=== PATIENT | male | born 1950 | race Caucasian/White ===

== ENCOUNTER → 2019-09-02 | Outpatient (CLI) | payer MEDICARE ==
--- NOTE | 2019-09-02 17:07 | XR ---
EXAMINATION TYPE: XR chest 2V DATE OF EXAM: 09/02/2019 COMPARISON: 04/15/2013 HISTORY: Short of breath TECHNIQUE: FINDINGS: Heart and mediastinum are normal. There is 2 cm sharply marginated nodular density in the s uperior segment right lower lobe posteriorly. Diaphragm is normal. Bony thorax appears normal. IMPRESSION: There is nodule in the right lung that is new compared to old exam. Follow-up recommended .
--- NOTE | 2019-09-03 07:52 | XR ---
EXAMINATION TYPE: XR ribs LT DATE OF EXAM: 09/02/2019 COMPARISON: CXR from same day. HISTORY: Left anterior rib rain. TECHNIQUE: A frontal and oblique images of the left sided ribs are obtained. FINDINGS: No acute displaced left-sided rib fractures are seen. Overlying soft tissue is unremarkable . Some degenerative change left shoulder greatest at the acromioclavicular joint noted. IMPRESSION: As above.
== END | disposition home or self-care (01) ==
LOC: RADXRMAIN 16:23
PROVIDERS: ATTEND Family Medicine
DX: M19.012 Primary osteoarthritis, left shoulder (principal); R91.1 Solitary pulmonary nodule; R06.02 Shortness of breath; R07.9 Chest pain, unspecified
CPT/HCPCS: 36415; 71046; 80053; 81001; 82306; 82553; 83615; 84153; 84443; 84484; 85027; 85379

== ENCOUNTER → 2019-09-02 | Outpatient (CLI) | payer MEDICARE ==
[2019-09-02 16:32] LABS: HGB 14.4 gm/dL (13.0-17.5); MCH 29.6 pg (25.0-35.0); MCHC 33.5 g/dL (31.0-37.0); MCV 88.3 fL (80.0-100.0); Platelet Count 324 k/uL (150-450); Poikilocytosis Slight; RBC 4.87 m/uL (4.30-5.90); RDW 14.2 % (11.5-15.5); WBC 5.2 k/uL (3.8-10.6)
[2019-09-02 16:37] LABS: ALT 18 U/L (4-49); AST 22 U/L (17-59); African American GFR (CKD) >90 (>60 ml/min/1.73 sqM); Albumin 4.3 g/dL (3.5-5.0); Albumin/Globulin Ratio 1.5; Alkaline Phosphatase 105 U/L (38-126); Anion Gap 9 mmol/L; Blood Urea Nitrogen 36 mg/dL (9-20); Calcium 10.2 mg/dL (8.4-10.2); Carbon Dioxide 24 mmol/L (22-30); Chloride 107 mmol/L (98-107); Globulin 2.8 g/dL; Glucose 141 mg/dL (74-99); LDH 346 U/L (313-618); Non-African American GFR(CKD) >90 (>60 ml/min/1.73 sqM); Potassium 3.7 mmol/L (3.5-5.1); Sodium 140 mmol/L (137-145); Total Bilirubin 0.5 mg/dL (0.2-1.3); Total Protein 7.1 g/dL (6.3-8.2)
[2019-09-02 16:46] LABS: Appearance,Urine Clear (Clear); Bilirubin,Urine Negative (Negative); Blood,Urine Negative (Negative); Color,Urine Yellow; Glucose,Urine (UA) Negative (Negative); Ketones,Urine Negative (Negative); Leukocyte Esterase,Urine Negative (Negative); Mucus,Urine Many /hpf; Nitrite,Urine Negative (Negative); PH, Urine 5.5 (5.0-8.0); Protein,Urine 1+ (Negative); RBC,Urine 1 /hpf (0-5); WBC,Urine 1 /hpf (0-5)
[2019-09-02 16:58] LABS: Creatine Kinase MB 1.3 ng/mL (0.0-2.4); Troponin I <0.012 ng/mL (0.000-0.034)
== END | disposition home or self-care (01) ==
LOC: LABWHC1 15:13
PROVIDERS: ATTEND Family Medicine
DX: I10 Essential (primary) hypertension (principal); R07.9 Chest pain, unspecified; R06.02 Shortness of breath; Z85.46 Personal history of malignant neoplasm of prostate
CPT/HCPCS: 36415; 80053; 81001; 82306; 82553; 83615; 84153; 84443; 84484; 85027; 85379

== ENCOUNTER → 2019-09-03 | Outpatient (CLI) | payer MEDICARE ==
--- NOTE | 2019-09-03 10:51 | CT ---
EXAMINATION TYPE: CT angio chest DATE OF EXAM: 09/03/2019 COMPARISON: Chest x-ray from yesterday HISTORY: Shortness of breath, post op knee replacement, elevated d-dimer CT DLP: 565 mGycm. Automated Exposure Control for Dose Reduction was Utilized. CONTRAST: CTA scan of the thorax is performed with IV Contrast, patient injected with 100 mL of Isovue 370, pul monary embolism protocol. MIP Images are created on CT scanner and reviewed. FINDINGS: LUNGS: Confirmation of suspicious right upper lobe nodule measuring 2.1 x 1.4 cm axial image 46. Lung s are clear. No pleural effusion or pneumothorax seen bilaterally. MEDIASTINUM: There is satisfactory enhancement of the pulmonary artery and its branches, there is no CT evidence for pulmonary embolism. There are no greater than 1 cm hilar or mediastinal lymph nodes. No cardiomegaly is seen. Fairly severe three-vessel coronary artery calcification which is noted m yanetker for underlying coronary artery disease. There is significant pulsation artifact but poor flow i n the mid right coronary artery with some improved flow near the intraventricular septum inferiorly. Trace pericardial effusion anterior-inferior aspect axial image 104. OTHER: Visualized liver heterogeneously hypodense consistent with fatty infiltration. Small degree of bilateral subareolar gynecomastia. Exaggerated thoracic kyphosis with moderate to severe multilevel anterior and lateral spurring. IMPRESSION: 1. No CT evidence for acute pulmonary embolism. 2. No suspicious acute pulmonary process. 3. Fairly severe three-vessel coronary artery disease, correlation with additional cardiac risk facto rs advised. 4. Confirmation of suspicious 2.1 cm right upper lobe nodule in which neoplasm cannot be excluded fur ther investigation with PET CT or imaging guided sampling advised.
--- NOTE | 2019-09-03 11:58 | US ---
EXAMINATION TYPE: US venous doppler duplex LE DATE OF EXAM: 09/03/2019 11:48 AM COMPARISON: Prior right lower extremity venous ultrasound March 14, 2016. CLINICAL HISTORY: R79.1 Elevated D Dimer. Post op knee surgery SIDE PERFORMED: Bilateral TECHNIQUE: The lower extremity deep venous system is examined utilizing real time linear array sonog junior with graded compression, doppler sonography and color-flow sonography. VESSELS IMAGED: External Iliac Vein (EIV) Common Femoral Vein Deep Femoral Vein Greater Saphenous Vein * Femoral Vein Popliteal Vein Small Saphenous Vein * Proximal Calf Veins (* superficial vessels) Right Leg: Negative for DVT Left Leg: Negative for DVT Grayscale, color doppler, spectral doppler imaging performed of the deep veins of the bilateral lower extremities. There is normal flow, compressibility, vascular waveforms. IMPRESSION: No ultrasound evidence for acute DVT in either lower extremity on current study.
== END | disposition home or self-care (01) ==
LOC: RADCTMAIN 10:07
PROVIDERS: ATTEND Family Medicine
DX: I25.10 Atherosclerotic heart disease of native coronary artery without angina pectoris (principal); R06.02 Shortness of breath; R79.1 Abnormal coagulation profile; R91.1 Solitary pulmonary nodule
CPT/HCPCS: 93970; 71275; Q9967

== ENCOUNTER → 2019-09-13 | Outpatient (CLI) | payer MEDICARE ==
--- NOTE | 2019-09-15 13:56 | PE ---
Nuclear medicine PET/CT HISTORY: Lung carcinoma, initial Patient received 9.8 mCi F-18 FDG intravenously in delayed scanning was performed from the skull base to the mid thighs. Localization and attenuation correction CT scan was performed., Correlation CT est 09/03/2019 Neck and chest: There is no cervical or supraclavicular adenopathy. There is a right upper lobe lung mass is noted in prior CT, there is associated hypermetabolic uptake, SUV 8.5. No mediastinal, axilla ry, or hilar adenopathy. Coronary artery calcifications are dense. No pleural or pericardial effusion s. ABDOMEN: There is no adrenal mass or associated hypermetabolic uptake. No retroperitoneal adenopathy. No liver mass. Osseous structures show degenerative disc disease, facet arthropathy in the lumbar spine. No suspicio us hypermetabolic uptake. IMPRESSION: Findings suggest bronchogenic carcinoma right upper lobe.
== END | disposition home or self-care (01) ==
LOC: RADPETMAIN 14:50
PROVIDERS: ATTEND Family Medicine
DX: R91.8 Other nonspecific abnormal finding of lung field (principal)
CPT/HCPCS: 78815; A9552

== ENCOUNTER → 2019-09-19 | Outpatient (CLI) | payer MEDICARE ==
--- NOTE | 2019-09-19 19:29 | ECHOF ---
Referral Reason:R06.09 shortness of breath MEASUREMENTS -------- HEIGHT: 175.3 cm WEIGHT: 95.3 kg BP: IVSd: 1.1 cm (0.6 - 1.1) LVIDd: 3.3 cm (3.9 - 5.3) LVPWd: 1.1 cm (0.6 - 1.1) IVSs: 1.2 cm LVIDs: 1.9 cm LVPWs: 0.9 cm LAESV Index (A-L): 20.72 ml/m Ao Diam: 3.7 cm (2.0 - 3.7) AV Cusp: 2.5 cm (1.5 - 2.6) LA Diam: 2.8 cm (2.7 - 3.8) MV EXCURSION: 12.842 mm (> 18.000) MV EF SLOPE: 32 mm/s (70 - 150) EPSS: 0.6 cm MV E Ghulam: 0.51 m/s MV DecT: 294 ms MV A Ghulam: 0.74 m/s MV E/A Ratio: 0.69 RAP: 5.00 mmHg RVSP: 12.80 mmHg TAPSE: 24.99 mm FINDINGS -------- Sinus rhythm. This was a technically adequate study. The left ventricular size is normal. Left ventricular wall thickness is normal. Overall left vent ricular systolic function is normal with, an EF between 55 - 60 %. The diastolic filling pattern is normal for the age of the patient 10.09. The right ventricle is normal in size. The right ventricular systolic function is normal. The left atrial size is normal. Normal LA size by volume 22+/-6 ml/m2. The right atrial size is normal. The aortic valve is trileaflet and appears structurally normal. The mitral valve is normal. There is trace mitral regurgitation. The tricuspid valve appears structurally normal. Trace tricuspid regurgitation present. Right marimar tricular systolic pressure is normal at < 35 mmHg. There is no pulmonic regurgitation present. Normal inferior vena cava with normal inspiratory collapse consistent with estimated right atrial pre ssure of 5 mmHg. There is no pericardial effusion. CONCLUSIONS -------- 1. Sinus rhythm. 2. This was a technically adequate study. 3. The left ventricular size is normal. 4. Left ventricular wall thickness is normal. 5. Overall left ventricular systolic function is normal with, an EF between 55 - 60 %. 6. The diastolic filling pattern is normal for the age of the patient 10.09 7. The right ventricle is normal in size. 8. The right ventricular systolic function is normal. 9. The left atrial size is normal. 10. Normal LA size by volume 22+/-6 ml/m2. 11. The right atrial size is normal. 12. The aortic valve is trileaflet and appears structurally normal. 13. The mitral valve is normal. 14. There is trace mitral regurgitation. 15. The tricuspid valve appears structurally normal. 16. Trace tricuspid regurgitation present. 17. Right ventricular systolic pressure is normal at < 35 mmHg. 18. There is no pulmonic regurgitation present. 19. Normal inferior vena cava with normal inspiratory collapse consistent with estimated right atrial pressure of 5 mmHg. 20. There is no pericardial effusion. [employer]ER: Ely Lan RDCS
== END | disposition home or self-care (01) ==
LOC: RADECHMAIN 15:13
PROVIDERS: ATTEND Family Medicine
DX: R06.09 Other forms of dyspnea (principal)
CPT/HCPCS: 93306

== ENCOUNTER 2020-04-18 17:31 | Observation (INO) | payer MEDICARE ==
--- NOTE | 2020-04-18 18:48 | XR ---
EXAMINATION TYPE: XR shoulder complete 3 views LT, XR pelvis AP view, XR knee complete 3 views RT, XR humerus 2 views LT DATE OF EXAM: 04/18/2020 COMPARISON: NONE HISTORY: 70-year-old male with pain after fall FINDINGS: Left shoulder: Moderate to severe degenerative change AC joint. Acromial space preserved. There is a minimally offset surgical neck fracture of the proximal humerus. Irregular fracture margins are demon strated. Minimal anterior apex angulation. Humerus: No other acute fracture of the more mid to distal humerus is identified. Pelvis: Right hip hemiarthroplasty is demonstrated. Degenerative change of the SI joints. Pubic symph ysis intact. Suspect some brachytherapy seeds or other surgical material projecting over the pubic sy mphysis. Mild degenerative changes left hip. No acute fracture, subluxation, dislocation. Right knee: Right knee total arthroplasty. No knee joint effusion. Extensor mechanism appears intact. Intravascular calcifications or loose bodies posterior knee measuring up to 1.5 cm. No periostitis o r osteolysis. IMPRESSION: 1. Left shoulder and humerus: Minimally offset surgical neck fracture of the proximal humerus with sl ight anterior apex angulation. Fracture margins are poorly defined. This could reflect either a subac false pass fracture with resorptive healing changes at the fracture margins or an acute pathologic fracture given the patient's history of lung cancer. 2. Pelvis: Right hip hemiarthroplasty. Mild degenerative changes left hip. No acute osseous anomaly s een. 3. Right knee: Right knee total arthroplasty. Posterior loose bodies measuring up to 1.5 cm. No acute osseous abnormality seen.
[2020-04-18] MEDS ORDERED: NALOXONE 0.4 MG/ML 1 ML VIAL IV PRN (19:10)
--- NOTE | 2020-04-18 19:10 | ED ---
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 Patient reportedly had a fall yesterday and injured his left shoulder. Patient then fell again today and landed on his bottom. found the patient after an hour. He is on Dilaudid for pain control at home. She states that she gave him 10 mg this morning and then was transferred to the hospital for pain control. When discussing the arm pain with the patient he states that his left shoulder has been painful since he left rehab. Reports 2 more distal mid humeral pain that started after his fall. He denies hitting his head. No loss of consciousness. Patient reports to being off balance because he had a hip rep lacement in February at [facility]. The patient is right-hand dominant. Denies any chest pain or shortness of breath. No abdominal pain or changes in his bowel or bladder habits. Denies any back pain. Admits mild pain in his right knee. at bedside reports that she has been unable to care for the patient - Related Data Home Medications Medication Instructions Recorded Confirmed Atenolol [Tenormin] 50 mg PO DAILY 04/19/20 04/19/20 Glimepiride [Amaryl] 4 mg PO BID PRN 04/19/20 04/19/20 HYDROmorphone [Dilaudid] 4 mg PO Q3H PRN 04/19/20 04/19/20 Hydrochlorothiazide 25 mg PO DAILY 04/19/20 04/19/20 [hydroCHLOROthiazide] Morphine Sulfate ER [Ms Contin] 30 mg PO Q12HR 04/19/20 04/19/20 Potassium Chloride ER [K-Dur 20] 20 meq PO DAILY 04/19/20 04/19/20 diazePAM [Valium] 2 mg PO BID PRN 04/19/20 04/19/20 Allergies Allergy/AdvReac Type Severity Reaction Status Date / Time No Known Allergies Allergy Verified 04/18/20 17:35 Review of Systems ROS Statement: Those systems with pertinent positive or pertinent negative responses have been documented in the HPI. ROS Other: All systems not noted in ROS Statement are negative. Past Medical History Past Medical History: Cancer, Diabetes Mellitus, Hypertension, Osteoarthritis (OA) Additional Past Medical History / Comment(s): pancreatic ca with mets to bones History of Any Multi-Drug Resistant Organisms: None Reported Past Surgical History: Joint Replacement Additional Past Surgical History / Comment(s): B knees Past Psychological History: No Psychological Hx Reported Smoking Status: Former smoker Past Alcohol Use History: None Reported Past Drug Use History: None Reported General Exam Limitations: no limitations General appearance: alert, in no apparent distress Head exam: Present: atraumatic, normocephalic, normal inspection Eye exam: Present: normal appearance, PERRL, EOMI. Absent: scleral icterus, conjunctival injection, periorbital swelling ENT exam: Present: normal exam, mucous membranes moist Neck exam: Present: normal inspection. Absent: tenderness, meningismus, lymphadenopathy Respiratory exam: Present: normal lung sounds bilaterally. Absent: respiratory distress, wheezes, rales, rhonchi, stridor Cardiovascular Exam: Present: regular rate, normal rhythm, normal heart sounds. Absent: systolic murmur, diastolic murmur, rubs, gallop, clicks GI/Abdominal exam: Present: soft, normal bowel sounds. Absent: distended, tenderness, guarding, rebound, rigid Extremities exam: Present: tenderness (left mid and proximal humurus), normal capillary refill. Absent: pedal edema, joint swelling, calf tenderness Back exam: Present: normal inspection Neurological exam: Present: alert, oriented X3, CN II-XII intact Psychiatric exam: Present: normal affect, normal mood Skin exam: Present: warm, dry, intact, normal color. Absent: rash Course Vital Signs 04/18/20 04/18/20 04/18/20 17:36 18:50 20:13 Temperature 98.1 F Pulse Rate 98 84 82 Respiratory 18 16 18 Rate Blood Pressure 164/99 140/74 139/88 O2 Sat by Pulse 97 94 L Oximetry Medical Decision Making - Medical Decision Making Upon arrival the patient is placed in room 6. Thorough history and physical exam was performed. Patient does appear to have new pain at the mid humerus region. Patient was sent over for an x-ray of his left shoulder, left humerus, pelvis and right knee. Images are remarkable for a surgical neck fracture of the proximal humerus. I discussed results of the patient. Patient is convinced that he broke his shoulder and does not believe that his fracture is new. I discussed that there is concern for subacute fracture versus pathologic fracture. The is concerned as she states she cannot care for the patient any longer. He recommended admission for pain control and orthopedic evaluation. Patient agreed to this. Discussed case with Dr. Goldberg who agreed to admit the patient. Orthopedics will be placed on consult. Patient will be placed in sling - Lab Data Result diagrams: 04/18/20 23:55 04/18/20 23:55 Disposition Clinical Impression: Fall, Left humeral fracture, Metastatic cancer Disposition: ADMITTED IP TO THIS HOSP Condition: Fair Is patient prescribed a controlled substance at d/c from ED?: No Decision to Admit Reason: Admit from EC Decision Date: 04/18/20 Decision Time: 19:10
[2020-04-18] MEDS: HYDROmorphone 1 MG/ML 1 ML SYRINGE IVP PRN ×2 (20:07→23:08)
[2020-04-18] MEDS: SODIUM CHLORIDE 0.9% 1,000 ML IV SCH (20:08)
[2020-04-19 00:04] LABS: Basophils % (A) 0 %; Eosinophils % (A) 0 %; HCT 40.2 % (39.0-53.0); HGB 13.3 gm/dL (13.0-17.5); Hypochromasia Slight; Lymphocytes # (A) 0.5 k/uL (1.0-4.8); Lymphocytes % (A) 9 %; MCH 29.1 pg (25.0-35.0); MCHC 33.1 g/dL (31.0-37.0); Monocytes # (A) 0.4 k/uL (0-1.0); Monocytes % (A) 7 %; Neutrophils # (A) 4.8 k/uL (1.3-7.7); Neutrophils % (A) 82 %; Platelet Count 214 k/uL (150-450); Poikilocytosis Slight; RBC 4.57 m/uL (4.30-5.90); RDW 14.4 % (11.5-15.5); WBC 5.8 k/uL (3.8-10.6)
--- NOTE | 2020-04-19 00:05 | P.HPIM ---
History of Present Illness H&P Date: 04/18/20 The patient is a 70-year-old male with a PMH of stage IV prostate cancer with metastases to bone and lung who presented to the ED with complaints of left arm pain and debility. History supplemented by the at the bedside. The patient reports that he was initially diagnosed with prostate cancer in 2014 and went into remission with treatment, and subsequently relapsed in January 2020, when it was discovered that he had widespread metastatic disease. He has been following with oncologist Dr. Vikash Saini with an office in [place], [place]. The patient recently underwent brachytherapy along with seed placement at some distant metastatic sites as per the patient. He was discharged from [facility] to [facility] on February 21 for subacute rehab, from where his took him out early due to perceived low quality of care on February 23. She has been taking care of him since then. Patient reports that he developed a left arm pain over the past few weeks which has gradually worsened. He is unable to pinpoint the exact onset of the pain and does not recall if it was brought on by trauma. The does recall that he fell 2 weeks ago and also earlier today, when he tried to get out of bed, was unable to get his footing, and slid down to the ground. He denied head trauma or any trauma to her shoulder. The patient reports 10 out of 10 left arm pain, not adequately controlled by morphine and Dilaudid at home administered by his . The notes that she is unable to care for him now due to his debility and inability to ambulate even with a walker. The patient also reports anorexia during this time and an unknown amount of weight loss. The is specifically requesting for placement in a hospice facility. Patient otherwise denied chest pain, shortness of breath, fever, chills, cough, or abdominal pain. Shoulder x-ray in the emergency room revealed a proximal humerus neck fracture, possibly subacute versus pathological. Hip and right knee x-rays were unremarkable. Review of Systems Pertinent positives and negatives as discussed in HPI, a complete review of systems was performed and all other systems are negative. Past Medical History Past Medical History: Cancer, Diabetes Mellitus, Hypertension, Osteoarthritis (OA) Additional Past Medical History / Comment(s): pancreatic ca with mets to bones History of Any Multi-Drug Resistant Organisms: None Reported Past Surgical History: Joint Replacement Additional Past Surgical History / Comment(s): B knees Past Psychological History: No Psychological Hx Reported Smoking Status: Former smoker Past Alcohol Use History: None Reported Past Drug Use History: None Reported Medications and Allergies Allergies Allergy/AdvReac Type Severity Reaction Status Date / Time No Known Allergies Allergy Verified 04/18/20 17:35 Physical Exam Vitals: Vital Signs Temp Pulse Resp BP Pulse Ox 04/18/20 20:13 82 18 139/88 04/18/20 18:50 84 16 140/74 94 L 04/18/20 17:36 98.1 F 98 18 164/99 97 Intake and Output 04/18/20 04/18/20 04/18/20 06:59 14:59 22:59 Other: Weight 83.915 kg General: non toxic, no distress, appears at stated age, overweight Derm: no unusual rashes/lesions no unusual ecchymoses, warm, dry Head: atraumatic, normocephalic, symmetric Eyes: EOMI, no lid lag, anicteric sclera, pupils equal round reactive to light ENT: Nose and ears atraumatic, no thrush, no pharyngeal erythema Neck: No thyromegaly, no cervical lymphadenopathy, trachea midline, supple Mouth: no lip lesion, mucus membranes moist Cardiovascular: S1S2 reg, no murmur, positive posterior tibial pulse bilateral, no edema, capillary refill less than 2 seconds Lungs: CTA bilateral, no rhonchi, no rales , no accessory muscle use Abdominal: soft, nontender to palpation, no guarding, no appreciable organomegaly, normal bowel sounds Ext: no gross muscle atrophy, muscle strength 4 out of 5 in all extremities except left upper extremity, proximal LUE strength 2 out of 5 with distal strength 3/5, no contractures, left mid arm tenderness with some left shoulder tenderness Neuro: CN II-XI grossly intact, light touch intact all 4 extremities, finger to nose within normal limits, Psych: Alert, oriented, appropriate affect Assessment and Plan Plan: Left humeral neck fracture - unclear if traumatic or pathologic -Orthopedic surgery consulted -Continue with pain control Debility -Obtain PT consult -Neither the patient nor his wish for him to go to a rehab facility. Consider home PT Stage IV Prostate cancer -Unsure regarding the patient's prognosis or if he would qualify for hospice since prostate cancer often has an indolent course -Contact patient's Oncologist in am -Obtain Palliative care consult Chronic conditions: Type II DM, hypertension -Lispro insulin sliding-scale blood glucose monitoring -Patient is unable to recall any of his names of medications. Confirm medications in the morning and resume as warranted. DVT prophylaxis -Lovenox subq The patient is admitted with an anticipated less than 2 midnight stay for evaluation of intractable pain CODE STATUS: Full Code Discussed with: Patient Anticipated discharge date: 1-[address]: Home A total of 45 minutes was spent on the care of this complex patient more than 50% of the time was spent in counseling and care coordination.
[2020-04-19 00:16] LABS: ALT 120 U/L (4-49); AST 120 U/L (17-59); African American GFR (CKD) >90 (>60 ml/min/1.73 sqM); Alkaline Phosphatase 274 U/L (38-126); Anion Gap 9 mmol/L; Blood Urea Nitrogen 15 mg/dL (9-20); Calcium 10.5 mg/dL (8.4-10.2); Carbon Dioxide 27 mmol/L (22-30); Chloride 100 mmol/L (98-107); Glucose 118 mg/dL (74-99); Non-African American GFR(CKD) 90 (>60 ml/min/1.73 sqM); Potassium 3.9 mmol/L (3.5-5.1); Sodium 136 mmol/L (137-145); Total Bilirubin 0.6 mg/dL (0.2-1.3); Total Protein 7.2 g/dL (6.3-8.2)
[2020-04-19] MEDS: HYDROmorphone 1 MG/ML 1 ML SYRINGE IVP PRN ×5 (02:21→16:10)
[2020-04-19 02:34] LABS: Appearance,Urine Clear (Clear); Bilirubin,Urine Negative (Negative); Blood,Urine Negative (Negative); Glucose,Urine (UA) Negative (Negative); Hyaline Casts,Urine 7 /lpf (0-2); Ketones,Urine 3+ (Negative); Leukocyte Esterase,Urine Negative (Negative); Mucus,Urine Few /hpf; Nitrite,Urine Negative (Negative); Protein,Urine 1+ (Negative); RBC,Urine <1 /hpf (0-5); Squamous Epithelial Cell,Urine <1 /hpf (0-4); Urobilinogen,Urine <2.0 mg/dL (<2.0); WBC,Urine 2 /hpf (0-5)
[2020-04-19 07:25] LABS: Glucose,Whole Blood 127 mg/dL (75-99)
[2020-04-19] MEDS: INSULIN ASPART (NovoLOG) 100 UNIT/ML VIAL SQ SCH ×3 (07:30→16:54)
[2020-04-19] MEDS: ENOXAPARIN 40 MG/0.4 ML SYRINGE SQ SCH (08:29)
--- NOTE | 2020-04-19 11:21 | P.PN ---
Subjective Progress Note Date: 04/19/20 Patient is complaining of a lot of pain mostly in his left arm. He is asking me when he couldn't go home. He has not been seen by orthopedic as of yet. He usually takes morphine twice daily at home extended release Objective - Vital Signs Vital signs: Vital Signs Temp 98.1 F 04/19/20 07:00 Pulse 73 04/19/20 07:00 Resp 18 04/19/20 07:00 BP 162/87 04/19/20 07:00 Pulse Ox 96 04/19/20 07:00 Intake & Output 04/18/20 04/19/20 04/19/20 18:59 06:59 18:59 Intake Total 25 Output Total 300 Balance -300 25 Weight 83.915 kg 83.915 kg Intake: Oral 25 Output: Urine 300 Other: Voiding Method Urinal Urinal # Voids 1 # Bowel Movements 1 - Exam General: The patient is awake and alert, in no distress Eye: there is normal conjunctiva bilaterally. Neck: The neck is supple, there is no JVD. Cardiovascular: Normal S1-S2, no S3-S4, no murmurs. Respiratory: Lungs clear to auscultation bilaterally Gastrointestinal: Abdomen is soft, nontender Musculoskeletal: There is no pedal edema. Neurological:. Speech is normal. Skin: Skin is warm and dry - Labs CBC & Chem 7: 04/18/20 23:55 04/18/20 23:55 Labs: Abnormal Lab Results - Last 24 Hours (Table) 04/18/20 04/18/20 04/19/20 Range/Units 23:55 23:55 02:20 Lymphocytes # 0.5 L (1.0-4.8) k/uL Sodium 136 L (137-145) mmol/L Glucose 118 H (74-99) mg/dL POC Glucose (mg/dL) (75-99) mg/dL Calcium 10.5 H (8.4-10.2) mg/dL AST 120 H (17-59) U/L ALT 120 H (4-49) U/L Alkaline Phosphatase 274 H (38-126) U/L Urine Protein 1+ H (Negative) Urine Ketones 3+ H (Negative) Hyaline Casts 7 H (0-2) /lpf Urine Mucus Few H (None) /hpf 08/31/20 Range/Units 07:19 Lymphocytes # (1.0-4.8) k/uL Sodium (137-145) mmol/L Glucose (74-99) mg/dL POC Glucose (mg/dL) 127 H (75-99) mg/dL Calcium (8.4-10.2) mg/dL AST (17-59) U/L ALT (4-49) U/L Alkaline Phosphatase (38-126) U/L Urine Protein (Negative) Urine Ketones (Negative) Hyaline Casts (0-2) /lpf Urine Mucus (None) /hpf Assessment and Plan Assessment: This is a 70-year-old male with extensive past medical history noted below who presented to the emergency room with left arm pain and debility. She was evaluated and admitted to the hospital for further management of his medical problems noted below Left humeral neck fracture - unclear if traumatic or pathologic -Orthopedic surgery consulted -Continue with pain control Debility -Obtain PT consult -Neither the patient nor his wish for him to go to a rehab facility. Consider home PT Stage IV Prostate cancer -We will discuss palliative care with patient and his Chronic conditions: Type II DM, hypertension -Lispro insulin sliding-scale blood glucose monitoring -Resume home dose of extended release morphine 20 mg twice daily DVT prophylaxis -Lovenox subq
[2020-04-19] MEDS: POTASSIUM CHLORIDE ER 20 MEQ TAB.ER PO SCH (11:25)
[2020-04-19] MEDS: MORPHINE SULFATE ER 30 MG TABLET PO SCH ×2 (11:25→20:50)
[2020-04-19] MEDS: atenoloL 50 MG TAB PO SCH (11:25)
[2020-04-19] MEDS: hydroCHLOROthiazide 25 MG TAB PO SCH (11:25)
[2020-04-19 11:39] LABS: Glucose,Whole Blood 152 mg/dL (75-99)
--- NOTE | 2020-04-19 12:50 | P.CNOR ---
History of Present Illness - [facility] Consult date: 04/19/20 Consult reason: fracture (Left proximal humerus) History of present illness: This is a 70-year-old male with history of metastatic prostate cancer. He states that he had a right hip surgery in the past for a fracture to the right hip. He is unclear as to whether the fracture was pathologic at that time. He has had multiple falls recently and is complaining of left shoulder pain for the past week or 2. He is unclear as to when the injury happened. The patient's has had difficulty managing his care at home. He is found to have a proximal humerus fracture of the left shoulder and is admitted to internal medicine for possible placement. Past Medical History Past Medical History: Cancer, Diabetes Mellitus, Hypertension, Osteoarthritis (OA) Additional Past Medical History / Comment(s): pancreatic ca with mets to bones History of Any Multi-Drug Resistant Organisms: None Reported Past Surgical History: Joint Replacement Additional Past Surgical History / Comment(s): B knees Past Anesthesia/Blood Transfusion Reactions: No Reported Reaction Past Psychological History: No Psychological Hx Reported Smoking Status: Former smoker Past Alcohol Use History: None Reported Past Drug Use History: None Reported Medications and Allergies Home Medications Medication Instructions Recorded Confirmed Type Atenolol [Tenormin] 50 mg PO DAILY 04/19/20 04/19/20 History Glimepiride [Amaryl] 4 mg PO BID PRN 04/19/20 04/19/20 History HYDROmorphone [Dilaudid] 4 mg PO Q3H PRN 04/19/20 04/19/20 History Hydrochlorothiazide 25 mg PO DAILY 04/19/20 04/19/20 History [hydroCHLOROthiazide] Morphine Sulfate ER [Ms Contin] 30 mg PO Q12HR 04/19/20 04/19/20 History Potassium Chloride ER [K-Dur 20] 20 meq PO DAILY 04/19/20 04/19/20 History diazePAM [Valium] 2 mg PO BID PRN 04/19/20 04/19/20 History Allergies Allergy/AdvReac Type Severity Reaction Status Date / Time No Known Allergies Allergy Verified 04/18/20 17:35 Physical Examination This is a pleasant 70-year-old male in no acute distress. He is alert and orien joon at this time. Exam of the head neck reveal no deformities. He has full cervical spine motion without difficulty or pain. Exam of left shoulder reveals no erythema or ecchymosis. He has difficulty moving the left shoulder secondary to pain. He has fairly good motion to the right shoulder. N eurovascular status the upper extremities is intact. The remainder of his musculoskeletal exam is unremarkable. Results X-rays reveal a fractured proximal humerus which appears to be pathologic. Fracture is minimally displaced. - Labs Labs: Abnormal Lab Results - Last 24 Hours (Table) 04/18/20 04/18/20 04/19/20 Range/Units 23:55 23:55 02:20 Lymphocytes # 0.5 L (1.0-4.8) k/uL Sodium 136 L (137-145) mmol/L Glucose 118 H (74-99) mg/dL POC Glucose (mg/dL) (75-99) mg/dL Calcium 10.5 H (8.4-10.2) mg/dL AST 120 H (17-59) U/L ALT 120 H (4-49) U/L Alkaline Phosphatase 274 H (38-126) U/L Urine Protein 1+ H (Negative) Urine Ketones 3+ H (Negative) Hyaline Casts 7 H (0-2) /lpf Urine Mucus Few H (None) /hpf 04/19/20 Range/Units 07:19 Lymphocytes # (1.0-4.8) k/uL Sodium (137-145) mmol/L Glucose (74-99) mg/dL POC Glucose (mg/dL) 127 H (75-99) mg/dL Calcium (8.4-10.2) mg/dL AST (17-59) U/L ALT (4-49) U/L Alkaline Phosphatase (38-126) U/L Urine Protein (Negative) Urine Ketones (Negative) Hyaline Casts (0-2) /lpf Urine Mucus (None) /hpf H & H 04/18/20 Range/Units 23:55 Hgb 13.3 (13.0-17.5) gm/dL Hct 40.2 (39.0-53.0) % Result Diagrams: 04/18/20 23:55 04/18/20 23:55 Assessment and Plan (1) Fall Current Visit: Yes Status: Acute Code(s): W19.XXXA - UNSPECIFIED FALL, INITIAL ENCOUNTER SNOMED Code(s): 5596842 (2) Left humeral fracture Current Visit: Yes Status: Acute Code(s): S42.302A - UNSP FRACTURE OF SHAFT OF HUMERUS, LEFT ARM, INIT SNOMED Code(s): 62653233 (3) Metastatic cancer Current Visit: Yes Status: Acute Code(s): C79.9 - SECONDARY MALIGNANT NEOPLASM OF UNSPECIFIED SITE SNOMED Code(s): 354214094 Plan: The clinical and x-ray findings are discussed with the patient. The patient tells me that he thinks that he may be entering into hospice at this time. Abebe ham recommend a sling for the left arm for comfort. There is currently no surgical indication at this time. We will continue to follow.
[2020-04-19] MEDS: diazePAM 2 MG TAB PO PRN (13:16)
[2020-04-19 16:43] LABS: Glucose,Whole Blood 129 mg/dL (75-99)
[2020-04-19] MEDS: SODIUM CHLORIDE 0.9% 1,000 ML IV SCH (16:54)
[2020-04-19 20:55] LABS: Hemoglobin A1C 5.5 % (4.0-6.0)
[2020-04-19 21:45] LABS: Glucose,Whole Blood 136 mg/dL (75-99)
[2020-04-20] MEDS: HYDROmorphone 1 MG/ML 1 ML SYRINGE IVP PRN ×5 (00:58→19:39)
[2020-04-20 07:23] LABS: Glucose,Whole Blood 120 mg/dL (75-99)
[2020-04-20] MEDS: INSULIN ASPART (NovoLOG) 100 UNIT/ML VIAL SQ SCH ×3 (07:35→17:45)
[2020-04-20] MEDS: atenoloL 50 MG TAB PO SCH (08:23)
[2020-04-20] MEDS: MORPHINE SULFATE ER 30 MG TABLET PO SCH ×2 (08:23→22:17)
[2020-04-20] MEDS: POTASSIUM CHLORIDE ER 20 MEQ TAB.ER PO SCH (08:23)
[2020-04-20] MEDS: hydroCHLOROthiazide 25 MG TAB PO SCH (08:23)
[2020-04-20] MEDS: ENOXAPARIN 40 MG/0.4 ML SYRINGE SQ SCH (08:24)
--- NOTE | 2020-04-20 10:41 | P.PN ---
Subjective Progress Note Date: 04/20/20 Principal diagnosis: Pathologic fracture left proximal humerus. Metastatic prostate cancer. This is a 70-year-old male with history of metastatic prostate cancer. He states that he had a right hip surgery in the past for a fracture to the right hip. He is unclear as to whether the fracture was pathologic at that time. He has had multiple falls recently and is complaining of left shoulder pain for the past week or 2. He is unclear as to when the injury happened. The patient's has had difficulty managing his care at home. He is found to have a proximal humerus fracture of the left shoulder and is admitted to internal medicine for possible placement. 04/20/2020: Patient has received his sling. He has no new complaints or concerns today. Objective - Vital Signs Vital signs: Vital Signs Temp 98.2 F 04/20/20 07:13 Pulse 60 04/20/20 07:13 Resp 16 04/20/20 07:13 BP 145/77 04/20/20 07:13 Pulse Ox 95 04/20/20 03:45 Intake & Output 04/19/20 04/20/20 04/20/20 18:59 06:59 18:59 Intake Total 50 Balance 50 Intake: Oral 50 Other: Voiding Method Urinal Urinal # Voids 2 3 1 - Exam This is a pleasant 70-year-old male in no acute distress. He is alert and oriented at this time. Sling is in place. He has full finger motion without difficulty or pain. Neurovascular status to the upper extremity is intact. - Labs CBC & Chem 7: 04/18/20 23:55 04/18/20 23:55 Labs: Abnormal Lab Results - Last 24 Hours (Table) 04/19/20 04/19/20 04/19/20 Range/Units 11:24 16:41 21:43 POC Glucose (mg/dL) 152 H 129 H 136 H (75-99) mg/dL 04/20/20 Range/Units 07:21 POC Glucose (mg/dL) 120 H (75-99) mg/dL Assessment and Plan (1) Fall Current Visit: Yes Status: Acute Code(s): W19.XXXA - UNSPECIFIED FALL, I NITIAL ENCOUNTER SNOMED Code(s): 2502649 (2) Left humeral fracture Current Visit: Yes Status: Acute Code(s): S42.302A - UNSP FRACTURE OF SHAFT OF HUMERUS, LEFT ARM, INIT SNOMED Code(s): 48708670 (3) Metastatic cancer Current Visit: Yes Status: Acute Code(s): C79.9 - SECONDARY MALIGNANT NEOPLASM OF UNSPECIFIED SITE SNOMED Code(s): 439602677 Plan: The clinical and x-ray findings are discussed with the patient. The patient tells me that he thinks that he may be entering into hospice at this time. Continue sling for the left arm for comfort. There is currently no surgical indication at this time. We will continue to follow.
[2020-04-20] MEDS: diazePAM 2 MG TAB PO PRN (10:45)
[2020-04-20 11:28] LABS: Glucose,Whole Blood 136 mg/dL (75-99)
--- NOTE | 2020-04-20 16:17 | P.PN ---
Subjective Patient appeared more comfortable today. Pain is better controlled. Objective - Vital Signs Vital signs: Vital Signs Temp 98 F 04/20/20 12:04 Pulse 62 04/20/20 12:04 Resp 16 04/20/20 12:04 BP 167/80 04/20/20 12:04 Pulse Ox 94 L 04/20/20 12:04 Intake & Output 04/19/20 04/20/20 04/20/20 18:59 06:59 18:59 Intake Total 50 160 Balance 50 160 Intake: IV 160 Sodium Chloride 0.9% 1, 160 000 ml @ 20 mls/hr IV . Q24H [facility] Rx#:[id number] Oral 50 Other: Voiding Method Urinal Urinal # Voids 2 3 1 - Exam General: The patient is awake and alert, in no distress Eye: there is normal conjunctiva bilaterally. Neck: The neck is supple, there is no JVD. Cardiovascular: Normal S1-S2, no S3-S4, no murmurs. Respiratory: Lungs clear to auscultation bilaterally Gastrointestinal: Abdomen is soft, nontender Musculoskeletal: There is no pedal edema. Neurological:. Speech is normal. Skin: Skin is warm and dry - Labs CBC & Chem 7: 04/18/20 23:55 04/18/20 23:55 Labs: Abnormal Lab Results - Last 24 Hours (Table) 04/19/20 04/19/20 04/20/20 Range/Units 16:41 21:43 07:21 POC Glucose (mg/dL) 129 H 136 H 120 H (75-99) mg/dL 04/20/20 Range/Units 11:21 POC Glucose (mg/dL) 136 H (75-99) mg/dL Assessment and Plan Assessment: This is a 70-year-old male with extensive past medical history noted below who presented to the emergency room with left arm pain and debility. She was evaluated and admitted to the hospital for further management of his medical problems noted below Left humeral neck fracture - unclear if traumatic or pathologic -Orthopedic surgery consulted, for surgical intervention as patient is looking into hospice -Continue with pain control Stage IV Prostate cancer -With history of bone metastasis and chronic pain Chronic conditions: Type II DM, hypertension -Lispro insulin sliding-scale blood glucose monitoring -Resume home dose of extended release morphine 20 mg twice daily DVT prophylaxis -Lovenox subq Today, I had a discussion with the patient and his over the phone regarding goals of care and hospice philosophy. Patient and his would like to be enrolled in hospice. Hospice consulted awaiting placement possibly tomorrow.
[2020-04-20 17:04] LABS: Glucose,Whole Blood 140 mg/dL (75-99)
[2020-04-20] MEDS: SODIUM CHLORIDE 0.9% 1,000 ML IV SCH (17:45)
[2020-04-20 21:48] LABS: Glucose,Whole Blood 126 mg/dL (75-99)
[2020-04-21] MEDS: HYDROmorphone 1 MG/ML 1 ML SYRINGE IVP PRN ×3 (03:16→18:20)
[2020-04-21 06:47] LABS: Glucose,Whole Blood 112 mg/dL (75-99)
[2020-04-21] MEDS: INSULIN ASPART (NovoLOG) 100 UNIT/ML VIAL SQ SCH ×3 (07:00→16:56)
[2020-04-21] MEDS: POTASSIUM CHLORIDE ER 20 MEQ TAB.ER PO SCH (08:11)
[2020-04-21] MEDS: MORPHINE SULFATE ER 30 MG TABLET PO SCH ×2 (08:12→20:43)
[2020-04-21] MEDS: atenoloL 50 MG TAB PO SCH (08:12)
[2020-04-21] MEDS: hydroCHLOROthiazide 25 MG TAB PO SCH (08:15)
[2020-04-21] MEDS: ENOXAPARIN 40 MG/0.4 ML SYRINGE SQ SCH (08:15)
[2020-04-21 11:41] LABS: Glucose,Whole Blood 147 mg/dL (75-99)
[2020-04-21 16:38] LABS: Glucose,Whole Blood 112 mg/dL (75-99)
--- NOTE | 2020-04-21 16:54 | P.PN ---
Subjective Progress Note Date: 04/21/20 Patient appeared more comfortable today. Pain is better controlled. Objective - Vital Signs Vital signs: Vital Signs Temp 98.2 F 04/21/20 14:42 Pulse 65 04/21/20 14:42 Resp 18 04/21/20 14:42 BP 131/75 04/21/20 14:42 Pulse Ox 95 04/21/20 14:42 Intake & Output 04/20/20 04/21/20 04/21/20 18:59 06:59 18:59 Intake Total 160 124 Output Total 700 Balance 160 -700 124 Intake: IV 160 Sodium Chloride 0.9% 1, 160 000 ml @ 20 mls/hr IV . Q24H [facility] Rx#:[id number] Oral 124 Output: Urine 700 Other: Voiding Method Urinal # Voids 1 200 3 - Exam General: The patient is awake and alert, in no distress Eye: there is normal conjunctiva bilaterally. Neck: The neck is supple, there is no JVD. Cardiovascular: Normal S1-S2, no S3-S4, no murmurs. Respiratory: Lungs clear to auscultation bilaterally Gastrointestinal: Abdomen is soft, nontender Musculoskeletal: There is no pedal edema. Neurological:. Speech is normal. Skin: Skin is warm and dry - Labs CBC & Chem 7: 04/18/20 23:55 04/18/20 23:55 Labs: Abnormal Lab Results - Last 24 Hours (Table) 04/20/20 04/20/20 04/21/20 Range/Units 17:02 21:47 06:45 POC Glucose (mg/dL) 140 H 126 H 112 H (75-99) mg/dL 04/21/20 04/21/20 Range/Units 11:39 16:34 POC Glucose (mg/dL) 147 H 112 H (75-99) mg/dL Assessment and Plan Assessment: This is a 70-year-old male with extensive past medical history noted below who presented to the emergency room with left arm pain and debility. She was evaluated and admitted to the hospital for further management of his medical problems noted below Left humeral neck fracture - unclear if traumatic or pathologic -Orthopedic surgery consulted, no surgical intervention as patient is looking into hospice -Continue with pain control Stage IV Prostate cancer -With history of bone metastasis and chronic pain Chronic conditions: Type II DM, hypertension -Lispro insulin sliding-scale blood glucose monitoring -Resume home dose of extended release morphine 20 mg twice daily DVT prophylaxis -Lovenox subq Today, patient's had a meeting with hospice team. Currently setting up insurance paperwork for transfer to hospice house tomorrow.
[2020-04-21] MEDS: SODIUM CHLORIDE 0.9% 1,000 ML IV SCH (19:55)
[2020-04-21 20:28] LABS: Glucose,Whole Blood 131 mg/dL (75-99)
[2020-04-22] MEDS: HYDROmorphone 1 MG/ML 1 ML SYRINGE IVP PRN ×3 (01:23→11:08)
[2020-04-22 06:44] LABS: Glucose,Whole Blood 114 mg/dL (75-99)
[2020-04-22 07:32] VITALS: BP 147/71; PULSE 73; RESP 20; TEMP 97.8
[2020-04-22] MEDS: INSULIN ASPART (NovoLOG) 100 UNIT/ML VIAL SQ SCH (08:50)
[2020-04-22] MEDS: MORPHINE SULFATE ER 30 MG TABLET PO SCH (08:51)
[2020-04-22] MEDS: hydroCHLOROthiazide 25 MG TAB PO SCH (08:52)
[2020-04-22] MEDS: POTASSIUM CHLORIDE ER 20 MEQ TAB.ER PO SCH (08:52)
[2020-04-22] MEDS: ENOXAPARIN 40 MG/0.4 ML SYRINGE SQ SCH (08:52)
[2020-04-22] MEDS: atenoloL 50 MG TAB PO SCH (08:52)
--- NOTE | 2020-04-22 10:25 | P.DS ---
Providers Date of admission: 04/18/20 19:10 Expected date of discharge: 04/22/20 Attending physician: Lorie Knox DO Consults: 04/18/20 19:11 Consult Physician Urgent Consulting Provider: Chandra Mak Consult Reason/Comments: left humeral fracture Do you want consulting provider notified?: Yes [facility] Course: Admitting diagnoses and discharge diagnoses: Left humeral neck fracture Debility Stage IV prostate cancer Type 2 diabetes mellitus Hypertension Patient seen and examined at bedside after getting a shower. Patient complains of chronic pain. Patient denies chest pain, shortness of breath, nausea, fever, or chills. Patient is scheduled to transfer to hospice at 11 AM today. Vitals temperature 97.8 orally heart rate 73 respiratory rate 20 blood pressure 147/71 oxygen saturation 96% room air General: [non toxic], [no distress], [appears at stated age] Derm: [warm], [dry] Head: [atraumatic], [normocephalic], [symmetric] Eyes: [EOMI], [no lid lag], [anicteric sclera] Mouth: [no lip lesion], [mucus membranes moist] Cardiovascular: [S1S2 reg], [no murmur], [positive posterior tibial pulse bilat eral], Lungs: [CTA bilateral], [no rhonchi, no rales] , [no accessory muscle use] Abdominal: [soft], [ nontender to palpation], [no guarding], [no appreciable organomegaly] Ext: [no gross muscle atrophy], [no edema], [no contractures] Neuro: [ CN II-XI grossly intact], [no focal neuro deficits] Psych: [Alert], [oriented], [appropriate affect] The patient is a 70-year-old male with a PMH of stage IV prostate cancer with metastases to bone and lung who presented to the ED with complaints of left arm pain and debility. History supplemented by the at the bedside. The patient reports that he was initially diagnosed with prostate cancer in 2014 and went into remission with treatment, and subsequently relapsed in January 2020, when it was discovered that he had widespread metastatic disease. He has been following with oncologist Dr. Vikash Saini with an office in [place], [place]. The patient recently underwent brachytherapy along with seed placement at some distant metastatic sites as per the patient. He was discharged from [facility] to [facility] on February 21 for subacute rehab, from where his took him out early due to perceived low quality of care on February 23. She has been taking care of him since then. Patient reports that he developed a left arm pain over the past few weeks which has gradually worsened. He is unable to pinpoint the exact onset of the pain and does not recall if it was brought on by trauma. The does recall that he fell 2 weeks ago and also earlier today, when he tried to get out of bed, was unable to get his footing, and slid down to the ground. He denied head trauma or any trauma to her shoulder. The patient reports 10 out of 10 left arm pain, not adequately controlled by morphine and Dilaudid at home administered by his . The notes that she is unable to care for him now due to his debility and inability to ambulate even with a walker. The patient also reports anorexia during this time and an unknown amount of weight loss. The is specifically requesting for placement in a hospice facility. Patient otherwise denied chest pain, shortness of breath, fever, chills, cough, or abdominal pain. Shoulder x-ray in the emergency room revealed a proximal humerus neck fracture, possibly subacute versus pathological. Hip and right knee x-rays were unremarkable. Activities as tolerated Diet diabetic Condition fair Transfer to hospice facility Follow up with PCP in 1-2 weeks Patient Condition at Discharge: Fair Plan - Discharge Summary Discharge Rx Participant: Yes New Discharge Prescriptions: Continue Atenolol [Tenormin] 50 mg PO DAILY Hydrochlorothiazide [hydroCHLOROthiazide] 25 mg PO DAILY Potassium Chloride ER [K-Dur 20] 20 meq PO DAILY Morphine Sulfate ER [Ms Contin] 30 mg PO Q12HR HYDROmorphone [Dilaudid] 4 mg PO Q3H PRN PRN Reason: Breakthrough Pain diazePAM [Valium] 2 mg PO BID PRN PRN Reason: Anxiety Glimepiride [Amaryl] 4 mg PO BID PRN PRN Reason: high blood sugar Discharge Medication List Atenolol [Tenormin] 50 mg PO DAILY 04/19/20 [History] Glimepiride [Amaryl] 4 mg PO BID PRN 04/19/20 [History] HYDROmorphone [Dilaudid] 4 mg PO Q3H PRN 04/19/20 [History] Hydrochlorothiazide [hydroCHLOROthiazide] 25 mg PO DAILY 04/19/20 [History] Morphine Sulfate ER [Ms Contin] 30 mg PO Q12HR 04/19/20 [History] Potassium Chloride ER [K-Dur 20] 20 meq PO DAILY 04/19/20 [History] diazePAM [Valium] 2 mg PO BID PRN 04/19/20 [History] Follow up Appointment(s)/Referral(s): [facility], [NON-STAFF] - 1 Week Naty Nolan MD [Primary Care Provider] - 1-2 days Activity/Diet/Wound Care/Special Instructions: Wear sling for comfort. Activity as tolerated. Palliative care and home care. Discharge Disposition: [facility] TO HOSPICE [facility]
[2020-04-22 11:31] LABS: Glucose,Whole Blood 122 mg/dL (75-99)
== END 2020-04-22 12:07 | disposition hospice, inpatient (51) ==
LOC: EC 17:31 → 4SSUR 19:10
PROVIDERS: ADMIT Internal Medicine; ATTEND Internal Medicine
DX: S42.212A Unspecified displaced fracture of surgical neck of left humerus, initial encounter for closed fracture (principal); R53.81 Other malaise; C25.9 Malignant neoplasm of pancreas, unspecified; C79.51 Secondary malignant neoplasm of bone; C78.00 Secondary malignant neoplasm of unspecified lung; E11.9 Type 2 diabetes mellitus without complications; Z74.1 Need for assistance with personal care; M25.561 Pain in right knee; I10 Essential (primary) hypertension; M19.90 Unspecified osteoarthritis, unspecified site; R63.0 Anorexia; Z68.27 Body mass index [BMI] 27.0-27.9, adult; Z96.649 Presence of unspecified artificial hip joint; Z79.891 Long term (current) use of opiate analgesic; Z79.899 Other long term (current) drug therapy; Z79.84 Long term (current) use of oral hypoglycemic drugs; Z96.653 Presence of artificial knee joint, bilateral; Z87.891 Personal history of nicotine dependence; Z91.81 History of falling; Z87.81 Personal history of (healed) traumatic fracture; W19.XXXA Unspecified fall, initial encounter
CPT/HCPCS: 96376 ×5; 96372 ×4; 96374; 99285; 97116; 97110; 97162; 97535; 97166; 80053; 85025; 81001; 83036; 72170; 73030; 73060; 73562; G0378 ×5; J1650 ×4; J1170 ×5